=== PATIENT | female | born 1965 | race Caucasian/White ===

== ENCOUNTER 2016-07-09 09:48 | Emergency (ER) | payer OTHER ==
[~2016-07-09] VITALS: Ht 170.2 cm; Wt 88.9 kg
[2016-07-09 10:44] LABS: BASO % 0 % (0-3); EOS % 1 % (0-3); HEMATOCRIT 40.6 % (36.0-47.0); HEMOGLOBIN 13.5 g/dL (12.0-15.5); LYMPH # 0.4 x10^3/uL (1.0-4.8); LYMPH % 5 % (24-48); MEAN CORPUSCULAR HEMOGLOBIN 30 pg (25-35); MEAN CORPUSCULAR HGB CONC 33 g/dL (31-37); MEAN CORPUSCULAR VOLUME 91 fL (79-100); MONO % 4 % (0-9); NEUT % 90 % (31-73); PLATELET COUNT 239 x10^3/uL (140-400); RED BLOOD COUNT 4.47 x10^6/uL (3.50-5.40); RED CELL DISTRIBUTION WIDTH 13.9 % (11.5-14.5); WHITE BLOOD COUNT 8.8 x10^3/uL (4.0-11.0)
[2016-07-09 10:45] LABS: BILIRUBIN,URINE NEGATIVE (NEG); GLUCOSE,URINE NEGATIVE (NEG); NITRITE,URINE NEGATIVE (NEG); PH,URINE 7.5; PROTEIN,URINE NEGATIVE (NEG-TRACE); UROBILINOGEN,URINE 0.2 mg/dL (0.2 mg/dL)
[2016-07-09] MEDS ORDERED: ONDANSETRON PF 4 MG/2 ML VIAL. IV ONE (10:45)
--- NOTE | 2016-07-09 10:51 | PHYS DOC ---
Past Medical History Past Medical History: No Pertinent History Past Surgical History: , Tubal ligation Alcohol Use: Heavy Drug Use: None Adult General Chief Complaint Chief Complaint: ABDOMINAL PAIN HPI HPI Patient is a 51 year old female who presents with abdominal pain. She states it started around midnight and has been intermittently coming and going every 15-20 minutes and lasting for a few minutes at a time. She also had nausea vomiting and diarrhea. She's vomited 2-3 times and also had 2 soft stools and then 2 liquid stools. She denies any blood in her vomit or stools. She has pain as being in the right upper quadrant and right lower quadrant and then radiates around her entire abdomen going to her back. She denies any vaginal discharge. She denies any dysuria. She has had and tubal ligation surgeries in the past. Review of Systems Review of Systems Constitutional: Denies fever or chills [] Eyes: Denies change in visual acuity, redness, or eye pain [] HENT: Denies nasal congestion or sore throat [] Respiratory: Denies cough or shortness of breath [] Cardiovascular: No additional information not addressed in HPI [] GI: Positive for abdominal pain, nausea vomiting and diarrhea. : Denies dysuria or hematuria [] Musculoskeletal: Denies back pain or joint pain [] Integument: Denies rash or skin lesions [] Neurologic: Denies headache, focal weakness or sensory changes [] Endocrine: Denies polyuria or polydipsia [] Current Medications Current Medications Current Medications Medications (Trade) Dose Ordered Sig/Cindy Start Time Stop Time Status Last Admin Dose Admin Info (Do NOT chart on this entry -- for MONITORING) 1 each PRN DAILY PRN 07/09/16 12:00 07/11/16 11:59 Iohexol (Omnipaque 240 Mg/ml) 30 ml 1X ONCE 07/09/16 11:45 07/09/16 11:46 DC Iohexol (Omnipaque 300 Mg/ml) 75 ml 1X ONCE 07/09/16 11:30 07/09/16 11:31 DC 07/09/16 11:39 75 ML Morphine Sulfate 2 mg 2 mg PRN Q15MIN PRN 07/09/16 11:30 07/10/16 11:29 07/09/16 11:27 2 MG Ondansetron HCl (Zofran) 4 mg 1X ONCE 07/09/16 10:45 07/09/16 10:46 DC 07/09/16 11:27 4 MG Sodium Chloride (Iv Sodium Chloride 0.9% 1000ml Bag) 1,000 ml @ 1,000 mls/hr 1X ONCE 07/09/16 11:30 07/09/16 12:29 DC 07/09/16 11:27 1,000 MLS/HR Allergies Allergies Allergies Coded Allergies Type Severity Reaction Last Updated Verified Penicillins Allergy Intermediate RASH 07/09/16 Yes Physical Exam Physical Exam Constitutional: Well developed, well nourished, no acute distress, non-toxic appearance. [] HENT: Normocephalic, atraumatic, bilateral external ears normal, oropharynx moist, no oral exudates, nose normal. [] Eyes: PERRLA, EOMI, conjunctiva normal, no discharge. [] Neck: Normal range of motion, no tenderness, supple, no stridor. [] Cardiovascular:Heart rate regular rhythm, no murmur [] Lungs & Thorax: Bilateral breath sounds clear to auscultation [] Abdomen: Bowel sounds normal, soft, tender palpation in the right upper and right lower quadrant, no masses, no pulsatile masses. [] Skin: Warm, dry, no erythema, no rash. [] Back: No tenderness, no CVA tenderness. [] Extremities: No tenderness, no cyanosis, no clubbing, ROM intact, no edema. [] Neurologic: Alert and oriented X 3, normal motor function, normal sensory function, no focal deficits noted. [] Psychologic: Affect normal, judgement normal, mood normal. [] Current Patient Data Vital Signs Vital Signs Date Time Temp Pulse Resp B/P Pulse Ox O2 Delivery O2 Flow Rate FiO2 07/09/16 10:05 98.6 91 20 133/68 99 Room Air 98.6 Lab Values Laboratory Tests Test 07/09/16 09:58 07/09/16 10:10 Urine Collection Type Void Urine Color Yellow Urine Clarity Clear Urine pH 7.5 Urine Specific [place] >=1.030 Urine Protein Negativemg/dL (NEG-TRACE) Urine Glucose (UA) Negativemg/dL (NEG) Urine Ketones (Stick) Negativemg/dL (NEG) Urine Blood Negative (NEG) Urine Nitrite Negative (NEG) Urine Bilirubin Negative (NEG) Urine Urobilinogen Dipstick 0.2mg/dL (0.2 mg/dL) Urine Leukocyte Esterase Negative (NEG) Urine RBC Occ/HPF (0-2) Urine WBC 1-4/HPF (0-4) Urine Squamous Epithelial Cells Mod/LPF Urine Bacteria Few/HPF (0-FEW) Urine Mucus Marked/LPF White Blood Count 8.8x10^3/uL (4.0-11.0) Red Blood Count 4.47x10^6/uL (3.50-5.40) Hemoglobin 13.5g/dL (12.0-15.5) Hematocrit 40.6% (36.0-47.0) Mean Corpuscular Volume 91fL (79-100) Mean Corpuscular Hemoglobin 30pg (25-35) Mean Corpuscular Hemoglobin Concent 33g/dL (31-37) Red Cell Distribution Width 13.9% (11.5-14.5) Platelet Count 239x10^3/uL (140-400) Neutrophils (%) (Auto) 90% (31-73) H Lymphocytes (%) (Auto) 5% (24-48) L Monocytes (%) (Auto) 4% (0-9) Eosinophils (%) (Auto) 1% (0-3) Basophils (%) (Auto) 0% (0-3) Neutrophils # (Auto) 7.9x10^3uL (1.8-7.7) H Lymphocytes # (Auto) 0.4x10^3/uL (1.0-4.8) L Monocytes # (Auto) 0.4x10^3/uL (0.0-1.1) Eosinophils # (Auto) 0.1x10^3/uL (0.0-0.7) Basophils # (Auto) 0.0x10^3/uL (0.0-0.2) Segmented Neutrophils % 80% (35-66) H Band Neutrophils % 3% (0-9) Lymphocytes % 13% (24-48) L Monocytes % 4% (0-10) Platelet Estimate Adequate (ADEQUATE) Prothrombin Time 12.2SEC (11.7-14.0) Prothrombin Time INR 1.0 (0.8-1.1) PTT 26SEC (24-38) Sodium Level 142mmol/L (136-145) Potassium Level 3.9mmol/L (3.5-5.1) Chloride Level 105mmol/L (98-107) Carbon Dioxide Level 26mmol/L (21-32) Anion Gap 11 (6-14) Blood Urea Nitrogen 18mg/dL (7-20) Creatinine 0.8mg/dL (0.6-1.0) Estimated GFR (Cockcroft-Gault) 75.9 Glucose Level 103mg/dL (70-99) H Calcium Level 8.6mg/dL (8.5-10.1) Total Bilirubin 0.5mg/dL (0.2-1.0) Direct Bilirubin 0.1mg/dL (0.0-0.2) Aspartate Amino Transferase (AST) 16U/L (15-37) Alanine Aminotransferase (ALT) 25U/L (14-59) Alkaline Phosphatase 58U/L (46-116) Creatine Kinase 66U/L (26-192) Creatine Kinase MB (Mass) 0.5ng/mL (0.0-3.6) Creatine Kinase MB Relative Index % (0-4) Troponin I Quantitative < 0.017ng/mL (0.000-0.055) Total Protein 7.4g/dL (6.4-8.2) Albumin 3.7g/dL (3.4-5.0) Lipase 90U/L (73-393) Laboratory Tests 07/09/16 10:10 Laboratory Tests 07/09/16 10:10 EKG EKG [] Radiology/Procedures Radiology/Procedures [facility] [address] [place] [address] IMAGING REPORT Signed PATIENT: RYLAN ARREDONDO ACCOUNT: [id number] : 1965 LOCATION: ER AGE: 51 SEX: F EXAM STATUS: REG ER ORD. PHYSICIAN: ROMELIA GOLDEN MD REASON: RUQ pain PROCEDURE: ABDOMEN LTD Indication: Right upper quadrant pain. Technique: Right upper quadrant ultrasound was performed. No comparison is available. Study was not available for review by a radiologist secondary to IT downtime until 1225 hours. Findings: The IVC is patent. The liver is normal in size and echotexture. Gallbladder is negative. Common bile duct is within normal limits at 3 mm. Pancreas is unremarkable. Right kidney is without hydronephrosis or mass. Impression: Normal right upper quadrant ultrasound. DICTATED and SIGNED BY: JOHNSON BAL MD DATE: 07/09/16 1231 CC: ROMELIA GOLDEN MD; GENEVIEVE ZARATE ~ [facility] [address] [place] [address] IMAGING REPORT Signed PATIENT: RYLAN ARREDONDO ACCOUNT: [id number] : 1965 LOCATION: ER AGE: 51 SEX: F EXAM STATUS: REG ER ORD. PHYSICIAN: ORMELIA GOLDEN MD REASON: abd pain PROCEDURE: ABD PELV W/ ORAL & IV CONTRAST Indication: Nausea, vomiting and diarrhea. Abdominal pain. Technique: Axial images and coronal and sagittal reformatted images are provided. Oral contrast and 75 mL of intravenous Omnipaque 300 was administered without complication. No comparison is available. One or more of the following individualized dose reduction techniques were utilized for this examination: 1. Automated exposure control 2. Adjustment of the mA and/or kV according to patient size 3. Use of iterative reconstruction technique Findings: There is dependent atelectasis. There is no pleural effusion. The heart is not enlarged. Breast implants are noted. There is mild fatty infiltration of the liver. Gallbladder is unremarkable. Spleen is not enlarged. Pancreas and the adrenals are unremarkable. Kidneys are symmetrically perfused. Subcentimeter probable cyst is noted in the right kidney. Aorta is normal caliber. It demonstrates minimal atheromatous disease. There is no small bowel obstruction or mural thickening. The colon is grossly unremarkable. The appendix is not definitely visualized, there are no secondary findings of an appendicitis. Uterus and adnexa are unremarkable. Bladder is unremarkable. Bony structures are intact. There are mild degenerative changes in the spine. Impression: 1. No acute abdominal findings. 2. Mild fatty infiltration of the liver. DICTATED and SIGNED BY: JOHNSON BAL MD DATE: 07/09/16 1314 CC: ROMELIA GOLDEN MD; GENEVIEVE ZARATE ~ Impressions: Undifferentiated abdominal pain Course & Med Decision Making Course & Med Decision Making Pertinent Labs and Imaging studies reviewed. (See chart for details) Labs, right upper quadrant ultrasound and CT abdomen and pelvis did not show any acute amount. I've offered her an ultrasound of her pelvic area to assess ovaries, she is declining at this time to have an u/s preformed. I've offered her admission to be observed as she is still having some abdominal pain with palpation in the left lower quadrant however she feels that she rather go home and is refusing to be admitted. I'm discharging her home and instructed him that if the pain gets worse she has uncontrolled nausea vomiting, fevers or other concerns return back to the ER. She can take Tylenol, Imodium, Gas-X as needed. Her is agreeable to being discharged in stable condition this time. Dragon Disclaimer Dragon Disclaimer This electronic medical record was generated, in whole or in part, using a voice recognition dictation system. Departure Departure Impression: Primary Impression: Abdominal pain Disposition: 01 HOME, SELF-CARE Referrals: GENEVIEVE ZARATE (PCP) Patient Instructions: Abdominal Pain Additional Instructions: You were offered admission to the hospital and an ultrasound of your ovaries, however you have decided that you would rather be discharged home and not have these done. Return to the ER if your pain gets worse, you have uncontrolled nausea, you have blood in your stools or you have other concerns. You can take Tylenol [id number] as needed, you can also take Imodium and Gas-X to see if this will help your symptoms. Please follow up with primary care physician within the next 5-7 days and return the ER, if you pain gets worse, or you have other concerns. ROMELIA GOLDEN MD Jul 09, 2016 10:51
[2016-07-09 10:55] LABS: PROTHROMBIN TIME PATIENT 12.2 SEC (11.7-14.0)
[2016-07-09 11:03] LABS: BACTERIA,URINE FEW /HPF (0-FEW); RBC,URINE OCC /HPF (0-2); SQUAMOUS EPITHELIAL CELL,UR MOD /LPF
[2016-07-09 11:14] LABS: ALBUMIN 3.7 g/dL (3.4-5.0); CALCIUM 8.6 mg/dL (8.5-10.1); CREATININE 0.8 mg/dL (0.6-1.0); DIRECT BILIRUBIN 0.1 mg/dL (0.0-0.2); GFR 75.9; POTASSIUM 3.9 mmol/L (3.5-5.1); TOTAL BILIRUBIN 0.5 mg/dL (0.2-1.0); TOTAL PROTEIN 7.4 g/dL (6.4-8.2)
[2016-07-09] MEDS: MORPHINE SULFATE 2 MG/ML DISP.SYRIN. IV/SQ PRN ×2 (11:27→14:17)
[2016-07-09 11:30] LABS: CKMB MASS 0.5 ng/mL (0.0-3.6); CREATINE KINASE 66 U/L (26-192)
[2016-07-09] MEDS ORDERED: CONTRAST GIVEN MC PRN ×2 (11:30→12:00)
[2016-07-09] MEDS ORDERED: IOHEXOL 300 MG/ML 75 ML VIAL IV ONE (11:30)
[2016-07-09] MEDS ORDERED: IV NORMAL SALINE 1000ML BAG 1,000 ML IV ONE (11:30)
[2016-07-09] MEDS ORDERED: IOHEXOL 240 MG/ML 50ML VIAL. PO ONE (11:45)
[2016-07-09 12:05] LABS: PLT ESTIMATE ADEQUATE (ADEQUATE)
--- NOTE | 2016-07-09 12:35 | RAD ---
Indication: Right upper quadrant pain. Technique: Right upper quadrant ultrasound was performed. No comparison is available. Study was not available for review by a radiologist secondary to IT downtime until 1225 hours. Findings: The IVC is patent. The liver is normal in size and echotexture. Gallbladder is negative. Common bile duct is within normal limits at 3 mm. Pancreas is unremarkable. Right kidney is without hydronephrosis or mass. Impression: Normal right upper quadrant ultrasound.
--- NOTE | 2016-07-09 13:22 | RAD ---
Indication: Nausea, vomiting and diarrhea. Abdominal pain. Technique: Axial images and coronal and sagittal reformatted images are provided. Oral contrast and 75 mL of intravenous Omnipaque 300 was administered without complication. No comparison is available. One or more of the following individualized dose reduction techniques were utilized for this examination: 1. Automated exposure control 2. Adjustment of the mA and/or kV according to patient size 3. Use of iterative reconstruction technique Findings: There is dependent atelectasis. There is no pleural effusion. The heart is not enlarged. Breast implants are noted. There is mild fatty infiltration of the liver. Gallbladder is unremarkable. Spleen is not enlarged. Pancreas and the adrenals are unremarkable. Kidneys are symmetrically perfused. Subcentimeter probable cyst is noted in the right kidney. Aorta is normal caliber. It demonstrates minimal atheromatous disease. There is no small bowel obstruction or mural thickening. The colon is grossly unremarkable. The appendix is not definitely visualized, there are no secondary findings of an appendicitis. Uterus and adnexa are unremarkable. Bladder is unremarkable. Bony structures are intact. There are mild degenerative changes in the spine. Impression: 1. No acute abdominal findings. 2. Mild fatty infiltration of the liver.
--- NOTE | 2016-07-09 13:53 | EKG ---
[facility] [address] [place] [address] Test Date: 2016-07-09 Test Time: 10:27:59 Pat Name: RYLAN ARREDONDO Department: Room: Gender: F Operations Clerk: : 1965 Requested By: ROMELIA GOLDEN Order Number: [id number] Reading MD: Hannah Calhoun Measurements Intervals [place] Rate: 81 P: 41 IA: 132 QRS: 42 QRSD: 82 T: 38 QT: 378 QTc: 445 Interpretive Statements SINUS RHYTHM NORMAL ELECTROCARDIOGRAM Electronically Signed On 07-12-2016 12:40:33 CDT by Hannah Calhoun
[2016-07-09 14:10] VITALS: BP 121/66
== END 2016-07-09 14:22 | disposition home or self-care (01) ==
LOC: ER 09:48
DX: R10.11 Right upper quadrant pain (principal); R11.2 Nausea with vomiting, unspecified; R19.7 Diarrhea, unspecified; R10.31 Right lower quadrant pain; F10.10 Alcohol abuse, uncomplicated; Z88.0 Allergy status to penicillin; Z98.890 Other specified postprocedural states; Z98.51 Tubal ligation status
CPT/HCPCS: 36415; 74177; 76705; 80048; 80076; 81001; 82553; 83690; 84484; 85007; 85027; 85610; 85730; 93005; 96361; 96374; 96375; 96376; 99285; J2270; J2405; J7030; Q9967